=== PATIENT | male | born 1970 | race Caucasian/White ===

== ENCOUNTER 2016-09-11 05:30 | Emergency (ER) | payer MEDICAID ==
[2016-09-11 05:53] VITALS: BP 155/88
--- NOTE | 2016-09-11 06:15 | EDM.PDOC ---
ED HPI Trauma - General Chief Complaint: Lower Extremity Injury/Pain Stated Complaint: LEFT FOOT PAIN Time Seen by Provider: 09/11/16 05:45 Source: Reports: Patient History Limitations: Reports: No limitations - History of Present Illness INITIAL COMMENTS - FREE TEXT/NARRATIVE: pt arrived with increased pain in his ankle. Kecia gordon has chronic ulcer on the side of the ankle. He has been showering and cleaning it each day. He has never gotten to [place] for an appt with Dr Rogers. Occurred When: other Method of Injury: other ( no recent injury) Pain/Injury Location: Reports: lower extremity, left Consciousness: Reports: no loss of consciousness Associated Symptoms: Reports: denies other symptoms Allergies/ADRs: Allergies amoxicillin [From Augmentin] Allergy (Verified 09/11/16 05:42) Hives clavulanic acid [From Augmentin] Allergy (Verified 09/11/16 05:42) Hives mirtazapine Adverse Reaction (Verified 09/11/16 05:42) Irritability Home Medications: Ambulatory Orders Albuterol Sulfate [Proair Hfa] 1 - 2 puff IH Q4H PRN 02/14/15 [Confirmed ] Naproxen 500 mg PO TID 06/03/16 [Confirmed 09/11/16] Pantoprazole [Protonix] 40 mg PO DAILY 06/03/16 [Confirmed 09/11/16] Warfarin [Coumadin] 5 mg PO DAILY 06/03/16 [Confirmed 09/11/16] Warfarin [Coumadin] 7.5 mg PO DAILY 06/03/16 [Confirmed 09/11/16] Past Medical History Cardiovascular History: Reports: PVD Respiratory History: Reports: Asthma Musculoskeletal History: Reports: Back pain, chronic, Other (see below) Other Musculoskeletal History: pvd Psychiatric History: Reports: Addiction, Anxiety, Bipolar, Depression Other Psychiatric History: marimonchouna Endocrine/Metabolic History: Reports: Other (see below) Other Endocrine/Metabolic History: Pre diabetic Hematologic History: Reports: Anticoagulation therapy, Other (see below) Other Hematologic History: Factor 5 deficiency Dermatologic History: Reports: Venous stasis dermatitis - Infectious Disease History Infectious Disease History: Reports: Chicken pox - Past Surgical History Cardiovascular Surgical History: Reports: Varicose, Other (see below) Other Cardiovascular Surgeries/Procedures: Vein stripping of lower legs GI Surgical History: Reports: Cholecystectomy Neurological Surgical History: Reports: Discectomy Musculoskeletal Surgical History: Reports: Other (see below) Other Musculoskeletal Surgeries/Procedures:: back surgeries Social & Family History - Tobacco Use Smoking Status *Q: Current Every Day Smoker Years of Tobacco use: 30 Packs/Tins Daily: 1 Second Hand Smoke Exposure: Yes - Caffeine Use Caffeine Use: Reports: Soda - Alcohol Use Days Per Week of Alcohol Use: 0 - Recreational Drug Use Recreational Drug Use: No Drug Use in Last 12 Months: Yes Recreational Drug Type: Reports: Marijuana/Hashish Recreational Drug Use Frequency: Rarely Review of Systems - Review of Systems Review Of Systems: See Below Constitutional: Reports: no symptoms Eyes: Reports: no symptoms Ears: Reports: no symptoms Nose: Reports: no symptoms Mouth/Throat: Reports: no symptoms Respiratory: Reports: no symptoms Cardiovascular: Reports: no symptoms GI/Abdominal: Reports: No symptoms Musculoskeletal: Reports: other ( pt has an ulcer on the inner aspect of the left foot that is very painful. He feels this looks slightly reder. ) Skin: Reports: other ( open ulcer) Trauma Exam - Physical Exam Exam: See Below Text/Narrative:: Pt arrived with incresed pain and redness from the ankle ulcer on the inner aspect. Exam Limited By: No limitations General Appearance: Reports: alert, moderate distress Head: Reports: atraumatic Eyes: bilateral eye: EOMI, normal inspection, PERRL Ears: Reports: normal TMs Nose: Reports: normal inspection Throat/Mouth: Reports: Normal inspection Neck: Reports: non-tender Respiratory Exam: Reports: no respiratory distress Extremities: Reports: other ( chronic ulcer on the inner aspect of the left ankle, slight redness around the site. There is no purulent drainage. ) Course - Vital Signs Last Recorded V/S: Last Vital Signs Temp 36.1 C 09/11/16 05:43 Pulse 103 H 09/11/16 05:43 Resp 14 09/11/16 05:43 BP 155/88 H 09/11/16 05:43 Pulse Ox 98 09/11/16 05:43 - Orders/Labs/Meds Labs: Laboratory Tests 09/11/16 09/11/16 Range/Units 06:27 06:27 WBC 9.3 (4.5-11.0) K/uL RBC 5.11 (4.30-5.90) M/uL Hgb 15.1 H (12.0-15.0) g/dL Hct 46.7 (40.0-54.0) % MCV 91 (80-98) fL MCH 30 (27-31) pg MCHC 32 (32-36) % Plt Count 223 (150-400) K/uL Neut % (Auto) 58 (36-66) % Lymph % (Auto) 33 (24-44) % [place] % (Auto) 7 H (2-6) % Eos % (Auto) 2 (2-4) % Baso % (Auto) 1 (0-1) % PT 16.0 H (9.5-12.0) sec INR 1.49 H (0.80-1.20) Meds: Medications Discontinued Medications Generic Name Dose Route Start Last Admin Trade Name Freq PRN Reason Stop Dose Admin Oxycodone/Acetaminophen 1 tab 09/11/16 06:25 09/11/16 06:33 Percocet 325-5 Mg PO 09/11/16 06:26 1 tab ONETIME ONE Administration - Re-Assessments/Exams Free Text/Narrative Re-Assessment/Exam: 09/11/16 06:34 Pt was given percocet 5/325 09/11/16 06:48 pt has a low inr and this is not therapeutic, his wbc is not elevated. Will have Dr Rowley see the pt. Departure - Departure Time of Disposition: 06:49 Disposition: Home, Self-Care 01 Condition: fair Clinical Impression: Chronic ulcer of left leg Referrals: PCP,None [Primary Care Provider] - Forms: ED Department Discharge Care Plan Goals: continue to clean regularly, bactrim ds 1 tab bid, appt with Dr Rowley, norco 5/325 1tab q6h, # 6
[2016-09-11] MEDS ORDERED: Acetaminophen/oxyCODONE 325-5 MG Tab PO ONE (06:25)
== END 2016-09-11 07:15 | disposition home or self-care (01) ==
LOC: JP.ED 05:30
DX: L97.329 Non-pressure chronic ulcer of left ankle with unspecified severity (principal); F17.210 Nicotine dependence, cigarettes, uncomplicated; Z88.1 Allergy status to other antibiotic agents; Z79.899 Other long term (current) drug therapy; Z79.01 Long term (current) use of anticoagulants
CPT/HCPCS: 36415; 85025; 85610; 99284; A9270

== ENCOUNTER 2016-11-18 06:14 | Emergency (ER) | payer MEDICAID ==
[2016-11-18 06:32] VITALS: BP 135/79
[2016-11-18] MEDS ORDERED: cefTRIAXone 1 GM, Lidocaine 1% 2.1 ML IM ONE ×2 (07:23)
[2016-11-18] MEDS ORDERED: Acetaminophen/oxyCODONE 325-5 MG Tab PO ONE (07:26)
--- NOTE | 2016-11-18 07:31 | EDM.PDOC ---
ED HPI Trauma - General Chief Complaint: Lower Extremity Injury/Pain Stated Complaint: L FOOT PAIN Time Seen by Provider: 11/18/16 07:24 Source: Reports: Patient History Limitations: Reports: No limitations - History of Present Illness INITIAL COMMENTS - FREE TEXT/NARRATIVE: pt arrived with a swollen and red ankle on the inner aspect of the left. Farhad is very tender and is painful. He has not been keeping the follow up appts. He saw Dr Rowley on September 28 and he was to be seen in 1 week and did not follow up. He did have a INR 2 days ago that was 1.80. He does not have a fever. But he thinks this flared about 4 days ago. Occurred When: last week Method of Injury: other (no injury. ) Pain/Injury Location: Reports: lower extremity, left Consciousness: Reports: no loss of consciousness Allergies/ADRs: Allergies amoxicillin [From Augmentin] Allergy (Verified 09/11/16 05:42) Hives clavulanic acid [From Augmentin] Allergy (Verified 09/11/16 05:42) Hives mirtazapine Adverse Reaction (Verified 09/11/16 05:42) Irritability Home Medications: Ambulatory Orders Albuterol Sulfate [Proair Hfa] 1 - 2 puff IH Q4H PRN 02/14/15 [Confirmed ] Naproxen 500 mg PO TID 06/03/16 [Confirmed 11/18/16] Pantoprazole [Protonix] 40 mg PO DAILY 06/03/16 [Confirmed 11/18/16] Warfarin [Coumadin] 5 mg PO DAILY 06/03/16 [Confirmed 11/18/16] Warfarin [Coumadin] 7.5 mg PO DAILY 06/03/16 [Confirmed 11/18/16] Past Medical History Cardiovascular History: Reports: PVD Respiratory History: Reports: Asthma Musculoskeletal History: Reports: Back pain, chronic, Neck pain, chronic, Other (see below) Other Musculoskeletal History: pvd. pinched nerve in neck Psychiatric History: Reports: Addiction, Anxiety, Bipolar, Depression Other Psychiatric History: marijauna Endocrine/Metabolic History: Reports: Other (see below) Other Endocrine/Metabolic History: Pre diabetic Hematologic History: Reports: Anticoagulation therapy, Other (see below) Other Hematologic History: Factor 5 deficiency Dermatologic History: Reports: Chronic cellulitis, Venous stasis dermatitis - Infectious Disease History Infectious Disease History: Reports: Chicken pox - Past Surgical History Cardiovascular Surgical History: Reports: Varicose, Other (see below) Other Cardiovascular Surgeries/Procedures: needs vein surgery to lower legs d\t clots in legs GI Surgical History: Reports: Cholecystectomy Neurological Surgical History: Reports: Discectomy Musculoskeletal Surgical History: Reports: Other (see below) Other Musculoskeletal Surgeries/Procedures:: back surgeries Social & Family History - Tobacco Use Smoking Status *Q: Current Every Day Smoker Years of Tobacco use: 30 Packs/Tins Daily: 1 Second Hand Smoke Exposure: Yes - Caffeine Use Caffeine Use: Reports: Soda - Alcohol Use Days Per Week of Alcohol Use: 0 - Recreational Drug Use Recreational Drug Use: Yes Drug Use in Last 12 Months: Yes Recreational Drug Type: Reports: Marijuana/Hashish Recreational Drug Use Frequency: Monthly Review of Systems - Review of Systems Review Of Systems: See Below Constitutional: Reports: chills Eyes: Reports: no symptoms Ears: Reports: no symptoms Nose: Reports: no symptoms Mouth/Throat: Reports: no symptoms Respiratory: Reports: No Symptoms Cardiovascular: Reports: no symptoms GI/Abdominal: Reports: No symptoms Genitourinary: Reports: no symptoms Musculoskeletal: Reports: other ( Painful left ankle. ) Trauma Exam - Physical Exam Exam: See Below Text/Narrative:: Pt arrived with a painful left ankle. This is much more red and very tender around the ulcer Exam Limited By: No limitations General Appearance: Reports: alert, no apparent distress Head: Reports: atraumatic Eyes: bilateral eye: EOMI, normal inspection, PERRL Extremities: Reports: other ( Pt has a chronic ankle ulcer which was seen On Sep !7 and was to be followed in 1 week. He did not return for follow up. This is now swollen , red hot and very tender. ) Course - Vital Signs Last Recorded V/S: Last Vital Signs Temp 35.8 C 11/18/16 06:31 Pulse 96 11/18/16 06:31 Resp 18 11/18/16 06:31 BP 135/79 11/18/16 06:31 Pulse Ox 97 11/18/16 06:31 - Orders/Labs/Meds Meds: Medications Discontinued Medications Generic Name Dose Route Start Last Admin Trade Name Freq PRN Reason Stop Dose Admin Ceftriaxone Sodium 1 gm/ 0 gm 11/18/16 07:23 Lidocaine HCl 2.1 ml IM 11/18/16 07:24 ONETIME ONE Oxycodone/Acetaminophen 1 tab 11/18/16 07:26 Percocet 325-5 Mg PO 11/18/16 07:27 ONETIME ONE Departure - Departure Time of Disposition: 07:28 Disposition: Home, Self-Care 01 Condition: fair Clinical Impression: Infected stasis ulcer of left lower extremity Instructions: Venous Ulcer, [id number] Referrals: PCP,None [Primary Care Provider] - Forms: ED Department Discharge Care Plan Goals: appt with Dr Amrik Ware or [facility], KEEP FOLLOW UP APPTS, bactrim DS 1 tab bid , percocet 5/325 1 tab q6h # 8 Rtc if this should suddenly get worse.
== END 2016-11-18 08:00 | disposition home or self-care (01) ==
LOC: JP.ED 06:14
DX: I83.223 Varicose veins of left lower extremity with both ulcer of ankle and inflammation (principal); L97.329 Non-pressure chronic ulcer of left ankle with unspecified severity; J45.909 Unspecified asthma, uncomplicated; F17.210 Nicotine dependence, cigarettes, uncomplicated; Z90.49 Acquired absence of other specified parts of digestive tract; Z98.890 Other specified postprocedural states; Z79.01 Long term (current) use of anticoagulants; Z79.899 Other long term (current) drug therapy; Z88.1 Allergy status to other antibiotic agents; Z88.8 Allergy status to other drugs, medicaments and biological substances
CPT/HCPCS: 99283; A9270; J0696

== ENCOUNTER 2017-01-24 05:25 | Emergency (ER) | payer MEDICAID ==
[2017-01-24 05:55] VITALS: BP 158/99
--- NOTE | 2017-01-24 06:30 | EDM.PDOC ---
ED HPI GENERAL MEDICAL PROBLEM - General Chief Complaint: General Stated Complaint: LEFT FOOT INFECTED Time Seen by Provider: 01/24/17 06:22 Source of Information: Reports: Patient History Limitations: Reports: No Limitations - History of Present Illness INITIAL COMMENTS - FREE TEXT/NARRATIVE: History of present illness: [46-year-old male presenting with a stasis ulcer of the left inner foot and ankle. [place] an [place] he says. He's been working with Dr. Rowley on healing this up for the last year or so. He is a smoker. Over last day or 2 it is swollen up and gotten more painful so is afraid it is infected again and he is wondering if he needs to go back on antibiotics. He states he had been on Bactrim one a day before. Said no fever or chills he is interested in quitting smoking] Review of systems: As per history of present illness and below otherwise all systems reviewed and negative. Past medical history: As per history of present illness and as reviewed below otherwise noncontributory. Surgical history: As per history of present illness and as reviewed below otherwise noncontributory. Social history: No reported history of drug or alcohol abuse. Family history: As per history of present illness and as reviewed below otherwise noncontributory. Physical exam: HEENT: Atraumatic, normocephalic, Lungs: Clear to auscultation, Heart: S1S2, regular, Abdomen: Soft, nondistended, nontender. Negative for masses or hepatosplenomegaly. Negative for costovertebral tenderness. Extremities: Examination of the left foot and ankle reveal that there is swelling present of the foot and ankle area 1-2+ with mild erythema but really no warmth. He does have linear ulceration on the inner aspect of his ankle running up his calf about a third of [address] way as well. This appears to be a chronic problem for him. Little weeping is occurring of serous fluid through the ulceration. Neuro: Awake, alert, oriented. Exam nonfocal. Diagnostics: [] Therapeutics: [] Impression: [Infected venous stasis ulcer left ankle] Plan: [I'm providing him Bactrim DS 1 by mouth twice a day for 21 days also a Chantix starter kit and [employer] 5/325 #15 and advised him to make an appointment to see Dr. Rowley as soon as possible. There is a special wrap that he does apparently and I think he would benefit from that wrap at this point.] Definitive disposition and diagnosis as appropriate pending reevaluation and review of above. Left Feet Pain Score (Numeric/FACES): 8 - Related Data Allergies Allergy/AdvReac Type Severity Reaction Status Date / Time amoxicillin [From Augmentin] Allergy Hives Verified 01/24/17 05:33 clavulanic acid Allergy Hives Verified 01/24/17 05:33 [From Augmentin] mirtazapine AdvReac Irritabilit Verified 01/24/17 05:33 y Home Meds: Home Meds Albuterol Sulfate [Proair Hfa] 1 - 2 puff IH Q4H PRN 02/14/15 [History] Pantoprazole [Protonix] 40 mg PO DAILY 06/03/16 [History] Warfarin [Coumadin] 5 mg PO DAILY 06/03/16 [History] Warfarin [Coumadin] 7.5 mg PO DAILY 06/03/16 [History] Ammonium Lactate [Lac-Hydrin 12% Crm] 280 gm .XX ASDIRECTED 01/24/17 [History] Past Medical History Cardiovascular History: Reports: Blood Clots/VTE/DVT, Hypertension Respiratory History: Reports: Asthma Gastrointestinal History: Reports: GERD Musculoskeletal History: Reports: Back Pain, Chronic, Fracture, Neck Pain, Chronic Other Musculoskeletal History: pvd. pinched nerve in neck Psychiatric History: Reports: Addiction, Anxiety, Bipolar, Depression, Panic Attack Other Psychiatric History: marijauna Endocrine/Metabolic History: Reports: Other (See Below) Other Endocrine/Metabolic History: prediabetic Hematologic History: Reports: Anticoagulation Therapy, Other (See Below) Other Hematologic History: Factor V deficiency Dermatologic History: Reports: Chronic Cellulitis, Venous Stasis Dermatitis - Infectious Disease History Infectious Disease History: Reports: Chicken Pox - Past Surgical History HEENT Surgical History: Reports: Oral Surgery Cardiovascular Surgical History: Reports: Varicose GI Surgical History: Reports: Cholecystectomy Neurological Surgical History: Reports: Discectomy Social & Family History - Tobacco Use Smoking Status *Q: Current Every Day Smoker Years of Tobacco use: 25 Packs/Tins Daily: 1 Second Hand Smoke Exposure: Yes - Caffeine Use Caffeine Use: Reports: Soda - Alcohol Use Days Per Week of Alcohol Use: 0 - Recreational Drug Use Recreational Drug Use: Yes Drug Use in Last 12 Months: Yes Recreational Drug Type: Reports: Marijuana/Hashish Recreational Drug Use Frequency: Weekly ED ROS GENERAL - Review of Systems Review Of Systems: ROS reveals no pertinent complaints other than HPI. ED EXAM, GENERAL - Physical Exam Exam: See Below Course - Vital Signs Last Recorded V/S: Last Vital Signs Temp 35.9 C 01/24/17 05:46 Pulse 100 01/24/17 05:46 Resp 18 01/24/17 05:46 BP 158/99 H 01/24/17 05:46 Pulse Ox 98 01/24/17 05:46 Departure - Departure Time of Disposition: 06:30 Disposition: Home, Self-Care 01 Clinical Impression: Venous stasis ulcer of ankle Qualifiers: Laterality: left Qualified Code(s): I83.023 - Varicose veins of left lower extremity with ulcer of ankle - Discharge Information Forms: ED Department Discharge Additional Instructions: As we discussed make an appointment with Dr. Rowley as soon as possible and I wish you the best of luck in your quitting smoking which I think will also go long ways towards helping you heal this ulceration and problem with your foot.
== END 2017-01-24 06:36 | disposition home or self-care (01) ==
LOC: JP.ED 05:25
DX: I83.023 Varicose veins of left lower extremity with ulcer of ankle (principal); J45.909 Unspecified asthma, uncomplicated; K21.9 Gastro-esophageal reflux disease without esophagitis; F17.210 Nicotine dependence, cigarettes, uncomplicated; F41.9 Anxiety disorder, unspecified; F32.9 Major depressive disorder, single episode, unspecified; Z98.890 Other specified postprocedural states; Z79.01 Long term (current) use of anticoagulants; Z79.899 Other long term (current) drug therapy; Z88.1 Allergy status to other antibiotic agents; Z88.8 Allergy status to other drugs, medicaments and biological substances
CPT/HCPCS: 99283